=== PATIENT | female | born 1995 | race Caucasian/White ===

== ENCOUNTER 2018-03-14 17:27 | Emergency (ER) | payer OTHER ==
[~2018-03-14] VITALS: Ht 160 cm; Wt 43.5 kg
[~2018-03-14 17:27] MED LIST: DOCUSATE SODIU100 MG PO
== END 2018-03-14 21:50 | disposition home or self-care (01) ==
LOC: ER 17:27
DX: R55 Syncope and collapse (principal)

== ENCOUNTER 2018-07-21 14:31 | Inpatient (IN) | payer OTHER ==
[~2018-07-21] VITALS: Ht 160 cm; Wt 54.0 kg
[2018-07-21] MEDS ORDERED: ZANTAC150 M3 PO (15:08)
== END 2018-07-23 12:44 | DRG 775 ==
LOC: LDR 14:31 → OB/GYN 20:40
PROC: 10E0XZZ Delivery of Products of Conception, External Approach (ICD-10-PCS; principal; 2018-07-21)
PROC: 0DQP0ZZ Repair Rectum, Open Approach (ICD-10-PCS; 2018-07-21)
PROC: 10907ZC Drainage of Amniotic Fluid, Therapeutic from Products of Conception, Via Natural or Artificial Opening (ICD-10-PCS; 2018-07-21)
PROC: 3E033VJ Introduction of Other Hormone into Peripheral Vein, Percutaneous Approach (ICD-10-PCS; 2018-07-21)
PROC: 4A1HXCZ Monitoring of Products of Conception, Cardiac Rate, External Approach (ICD-10-PCS; 2018-07-21)
DX: O70.3 Fourth degree perineal laceration during delivery (principal); Z37.0 Single live birth; Z3A.38 38 weeks gestation of pregnancy